=== PATIENT | male | born 1975 | race Caucasian/White ===

== ENCOUNTER 2019-11-24 21:03 | Emergency (ER) | payer BC ==
--- NOTE | 2019-11-24 21:16 | NUR ---
Patient left without being seen by ER physician.
--- NOTE | 2019-11-24 21:16 | NUR ---
Patient left before triage.
== END 2019-11-24 21:19 | disposition home or self-care (01) ==
LOC: ER 21:03
DX: Z53.21 Procedure and treatment not carried out due to patient leaving prior to being seen by health care provider (principal)